=== PATIENT | male | born 1980 | race Caucasian/White ===

== ENCOUNTER 2019-01-31 23:14 | Emergency (ER) | payer SELFPAY ==
[~2019-01-31] VITALS: Ht 175.3 cm; Wt 93.2 kg
[2019-01-31 23:56] VITALS: BP 131/99
== END 2019-02-01 00:10 | disposition home or self-care (01) ==
LOC: EMS 23:15
DX: Z02.89 Encounter for other administrative examinations (principal); S20.312A Abrasion of left front wall of thorax, initial encounter; F10.129 Alcohol abuse with intoxication, unspecified; Z91.013 Allergy to seafood; Y90.9 Presence of alcohol in blood, level not specified; V48.5XXA Car driver injured in noncollision transport accident in traffic accident, initial encounter; Y93.89 Activity, other specified; Y92.89 Other specified places as the place of occurrence of the external cause; Y99.8 Other external cause status

== ENCOUNTER 2020-12-05 02:37 | Emergency (ER) | payer OTHER ==
[~2020-12-05] VITALS: Ht 172.7 cm; Wt 95.5 kg
[2020-12-05 02:47] VITALS: BP 129/85
[2020-12-05] MEDS ORDERED: BACITRACIN 0.9 GM PACKET OINTMENT TP ONE (03:00)
== END 2020-12-05 04:24 | disposition home or self-care (01) ==
LOC: EMS 02:40
DX: S02.2XXA Fracture of nasal bones, initial encounter for closed fracture (principal); S60.511A Abrasion of right hand, initial encounter; S60.512A Abrasion of left hand, initial encounter; R60.0 Localized edema; I10 Essential (primary) hypertension; F17.210 Nicotine dependence, cigarettes, uncomplicated; Z91.013 Allergy to seafood; W50.0XXA Accidental hit or strike by another person, initial encounter; Y93.89 Activity, other specified; Y92.89 Other specified places as the place of occurrence of the external cause; Y99.8 Other external cause status
CPT/HCPCS: 70450; 70486; 72125; 99285